=== PATIENT | female | born 1990 | race Caucasian/White ===

== ENCOUNTER 2020-09-06 09:16 | Emergency (ER) | payer OTHER, SELFPAY ==
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
[2020-09-06 09:26] VITALS: BP 126/83; PULSE 79; RESP 16; TEMP 36.1; O2SAT 100
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
[2020-09-06 11:34] VITALS: BP 120/82; PULSE 80; RESP 16; O2SAT 98
== END 2020-09-06 11:25 | disposition home or self-care (01) ==
PROVIDERS: Emergency Provider General Practice
DX: S16.1XXA Strain of muscle, fascia and tendon at neck level, initial encounter (principal); V43.52XA Car driver injured in collision with other type car in traffic accident, initial encounter
CPT/HCPCS: 72125; 99284